=== PATIENT | male | born 1970 | race Caucasian/White ===

== ENCOUNTER 2019-12-19 20:11 | Emergency (ER) | payer OTHER ==
[~2019-12-19] VITALS: Ht 167.6 cm; Wt 77.1 kg
[2019-12-19] MEDS ORDERED: Haloperidol 5mg/ml Inj IM ONE ×2 (20:15→22:15)
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
--- NOTE | 2019-12-19 20:30 | NUR ---
ED Nurse Note: Pt more calm and cooperative with primary nurse, no need for restraints at this time, pt made agreement with nurse, will monitor for need of use, restraints removed and pt medicated.
[2019-12-19 20:58] LABS: ANION GAP 12 mmol/L (5-15); BLOOD UREA NITROGEN 8 mg/dL (7-18); CALCIUM 8.6 MG/DL (8.5-10.1); CARBON DIOXIDE 24 MMOL/L (21-32); CHLORIDE 106 MMOL/L (98-107); CREATININE 1.1 MG/DL (0.55-1.30); POTASSIUM 3.6 MMOL/L (3.5-5.1); SODIUM 142 MMOL/L (136-145)
[2019-12-19 21:02] LABS: ALANINE AMINOTRANSFERASE 126 U/L (12-78); ALBUMIN 3.8 G/DL (3.4-5.0); ALKALINE PHOSPHATASE 57 U/L (46-116); ASPARTATE AMINO TRANSFERASE 128 U/L (15-37); BILIRUBIN,TOTAL 0.4 MG/DL (0.2-1.0)
[2019-12-19 21:14] LABS: BASOPHILS % (AUTO) 1.2 % (0.0-2.0); EOSINOPHILS % (AUTO) 3.4 % (0.0-3.0); HEMATOCRIT 42.6 % (42.0-52.0); LYMPHOCYTES % (AUTO) 27.6 % (20.0-45.0); MEAN CORPUSCULAR VOLUME 98 FL (80-99); MONOCYTES % (AUTO) 7.6 % (1.0-10.0); NEUTROPHILS % (AUTO) 60.2 % (45.0-75.0); PLATELET COUNT 152 K/UL (150-450); RED BLOOD COUNT 4.34 M/UL (4.70-6.10); RED CELL DISTRIBUTION WIDTH 13.3 % (11.6-14.8); WHITE BLOOD COUNT 5.8 K/UL (4.8-10.8)
--- NOTE | 2019-12-19 21:42 | Diagnostic Imaging Report ---
EXAM: CT Head Without Intravenous Contrast CLINICAL HISTORY: INJ TECHNIQUE: Axial computed tomography images of the head/brain without intravenous contrast. CTDI is 53 mGy and DLP is 1072 mGy-cm. One or more of the following dose reduction techniques were used: automated exposure control, adjustment of the mA and/or kV according to patient size, use of iterative reconstruction technique. COMPARISON: No relevant prior studies available. FINDINGS: Brain: No hemorrhage or mass effect. Ventricles: No hydrocephalus. Bones/joints: Unremarkable. Soft tissues: Unremarkable. Sinuses: Opacification of the right maxillary sinus and right anterior ethmoid sinus. Mastoid air cells: Clear. IMPRESSION: No acute hemorrhage, hydrocephalus, or mass effect.
--- NOTE | 2019-12-19 22:10 | NUR ---
ED Nurse Note: Pt remains calm, meds given effective, pt was awakened for urine specimen and became very agitated and combative, yelling and shouting profanity to leave him alone, new med orders recieved, when pt offerred meds suddennly he became cooperative, gave urine sample and more calm, pt given food and juice and water, urine specimen sent, will continue to closely monitor.
[2019-12-19] MEDS ORDERED: LORazepam Inj 2mg/ml 1ml IV ONE (22:15)
[2019-12-19 22:43] LABS: APPEARANCE,URINE CLEAR; BILIRUBIN, URINE NEGATIVE (NEGATIVE); COLOR,URINE PALE YELLOW; GLUCOSE, URINE (UA) NEGATIVE (NEGATIVE); KETONES,URINE NEGATIVE (NEGATIVE); LEUKOCYTE ESTERASE ,URINE NEGATIVE (NEGATIVE); NITRITE,URINE NEGATIVE (NEGATIVE); PH,URINE 5 (4.5-8.0); PROTEIN,URINE NEGATIVE (NEGATIVE); UROBILINOGEN,URINE NORMAL MG/DL (0.0-1.0)
[2019-12-19 22:45] VITALS: BP 141/81
--- NOTE | 2019-12-20 01:30 | NUR ---
ED Nurse Note: Pt continues to sleep quietly, meds given effective, pt remains out of restraints, no need for use, no s/s of any respiratory distress or acute changes, pt remains on sitter precautions and 5150 hold.
--- NOTE | 2019-12-20 04:15 | NUR ---
ED Nurse Note: Pt continues to rest quietly, appears to be sleeping, remains on suicidal precautions with constant observation, no changes or distress noted, no sob or labored breathing, pt remains out of restraint use, IV site patent, will continue to closely monitor as pt waiting for psych placement, repeat blood alcohol level drawn and sent to lab.
[2019-12-20 05:45] VITALS: BP 133/69
--- NOTE | 2019-12-20 07:05 | NUR ---
HAND-OFF: Report given to SERGIO uCevas.
[2019-12-20 07:06] VITALS: BP 135/75
--- NOTE | 2019-12-20 07:06 | NUR ---
ED Nurse Note: Received report from Kathryn HILL. Pt AAO x4, verbally responsive. Pt is calm, cooperative and answers questions nicely. Pt still have suicidal ideation, hurting himself by cutting off his wrist. Safety and comfort provided. Suicidal precaution observed. Sitter at bedside.
--- NOTE | 2019-12-20 09:02 | NUR ---
ED Nurse Note: Breakfast tray provided.
[2019-12-20 11:00] VITALS: BP 137/72
--- NOTE | 2019-12-20 11:57 | NUR ---
ED Nurse Note: Lunch tray provided. Pt alert, oriented, cooperative. Not in any distress. Sitter at bedside.
[2019-12-20 14:00] VITALS: BP 131/69
--- NOTE | 2019-12-20 15:25 | NUR ---
ED Nurse Note: Dr. Dang at bedside.
[2019-12-20 16:23] VITALS: BP 129/78
--- NOTE | 2019-12-20 16:23 | NUR ---
ED Nurse Note: Pt cleared by ERMD for discharge. DC instructions was given and explained to pt and verbalized understanding of teachings. All medical deviecs such as ID band and IV line removed. Pt is AAO x4, ambulatory and left with all personal belongings. Tap card provided.
--- NOTE | 2019-12-21 00:15 | Consultation ---
DATE OF CONSULTATION: 12/20/2019 HISTORY OF PRESENT ILLNESS: This is a 49-year-old male with a history of alcohol dependence, who has been admitted to the hospital on a 5150. He was placed on a hold by the research dietitian. The patient initially stated that he has suicidal ideation with intention to end his life. Upon evaluation, he stated that he is not suicidal anymore, and he would like to go back to his placement as we do not have a psychiatric unit and it would be to stay in the ER longer. PAST PSYCHIATRIC HISTORY: Significant for major depressive disorder. He has been to the hospital for many times. He stated that he has had several psychiatric hospitalizations for the past several months. PAST MEDICAL HISTORY: Nonsignificant. ALLERGIES: The chart was reviewed. SUBSTANCE ABUSE HISTORY: Significant for alcohol dependence. He stated that he is not drinking every day. He drinks whenever his friends are offering him to drink. MENTAL STATUS EXAMINATION: Alert and oriented times self, place, and situation. He was disheveled. Mood is dysphoric. Affect is constricted, congruent with mood. Thought process is concrete. Thought content, no suicidal or homicidal ideation. Cognition is intact. Insight and judgment are fair. ASSESSMENT: Troy I Alcohol dependence. Major depressive disorder by history. Troy II Deferred. Troy III None. Troy IV Living in a alf and addiction to alcohol. Troy V 50 PLAN: 1. The patient is reluctant to take any medication. 2. The patient is not an imminent danger to self or others. 3. We will lift 5150. 4. The patient will be provided a ride back to his alf. Sierra Burt M.D. DR: Raven JOB#: [id number] CC:
== END 2019-12-20 16:23 | disposition home or self-care (01) ==
LOC: EDBD 20:11 → EMR 20:25
DX: F23 Brief psychotic disorder (principal); F10.920 Alcohol use, unspecified with intoxication, uncomplicated; I10 Essential (primary) hypertension; Q27.39 Arteriovenous malformation, other site; F12.90 Cannabis use, unspecified, uncomplicated; W22.8XXA Striking against or struck by other objects, initial encounter; Y93.9 Activity, unspecified; Y92.9 Unspecified place or not applicable; Z88.8 Allergy status to other drugs, medicaments and biological substances; Z72.89 Other problems related to lifestyle
CPT/HCPCS: 36415; 70450; 80053; 80307; 81003; 85025; 96372; 96374; G0480; G0481; J1630; Z7502; 99285